=== PATIENT | female | born 2000 | race African-American/Black ===

== ENCOUNTER 2019-06-10 17:45 | Emergency (ER) | payer OTHER ==
--- NOTE | 2019-06-10 17:55 | PDOC ---
Rapid Medical Evaluation Chief Complaint: Pain, Acute Time Seen by Provider: 06/10/19 17:55 Medical Evaluation: 06/10/19 17:50 19 year old female resident at the [facility] c/o left sided facial swelling. patient is currently on augmentin for sinusitis. PE: patient alert ox3 no gum swelling + left maxillary sinus tenderness. A: left facial swelling sinusitis? P: patient to The er for further management of care Discharge Disposition - Diagnosis Left facial swelling - Referrals - Patient Instructions - Post Discharge Activity
[2019-06-10 17:56] VITALS: BP 122/72; PULSE 77; TEMP 98; BMI 43.2
--- NOTE | 2019-06-10 18:59 | PDOC ---
History of Present Illness - General Chief Complaint: Pain, Acute Stated Complaint: SWOLLEN FACE Time Seen by Provider: 06/10/19 17:55 History Source: Patient Exam Limitations: No Limitations - History of Present Illness Initial Comments: 06/10/19 20:04 Chief complaint: Facial swelling Patient is a 19-year-old female who states that she started having sinus pain and was put on Augmentin and nasal spray 5 days ago. Patient denies any fever, difficulty swallowing but now has swelling to the left side of the face that started yesterday and got worse today. GENERAL/CONSTITUTIONAL: No fever, weakness. dizziness HEAD, EYES, EARS, NOSE AND THROAT:+ Facial swelling, No change in vision. No ear pain or discharge. No sore throat. CARDIOVASCULAR: No chest pain RESPIRATORY: No shortness of breath or cough GASTROINTESTINAL: No pain, nausea, vomiting, diarrhea or constipation GENITOURINARY: No dysuria MUSCULOSKELETAL: No neck or back pain SKIN: No rash NEUROLOGIC: No headache, vertigo, loss of consciousness, or loss of sensation. GENERAL: The patient is awake, alert, and fully oriented, in no acute distress. HEAD: Mild swelling to the left cheek, no signs of erythema or urticaria, otherwise Normal with no signs of trauma. EYES: Pupils equal, round and reactive to light, sclera anicteric, conjunctiva clear. ENT: pharynx: no erythema, no exudate, uvula midline, minimal tenderness and redness at the front upper mid gumline, no obvious abscess or swelling. No sub- lingular swelling NECK: supple, no swelling CHEST: clear, nontender, rr ABD: soft, nontender BACK: no tenderness or signs of injury EXTREMITIES: Normal range of motion, no edema. NEUROLOGICAL: Normal speech, normal gait. SKIN: Warm, Dry 06/10/19 20:08 Past History - Past Medical History Allergies/Adverse Reactions: Allergies Allergy/AdvReac Type Severity Reaction Status Date / Time No Known Allergies Allergy Verified 06/10/19 17:53 COPD: No Other medical history: DENIES - Immunization History Immunization Up to Date: Yes - Psycho Social/Smoking Cessation Hx Smoking History: Never smoked Information on smoking cessation initiated: No Hx Alcohol Use: No Drug/Substance Use Hx: No *Physical Exam - Vital Signs Last Vital Signs Temp Pulse Resp BP Pulse Ox 98.0 F 77 18 122/72 97 06/10/19 17:47 06/10/19 17:47 06/10/19 17:47 06/10/19 17:47 06/10/19 17:47 ED Treatment Course - ADDITIONAL ORDERS Additional order review: Laboratory Results 06/10/19 17:59 Urine HCG, Qual Negative Medical Decision Making - Medical Decision Making 06/10/19 20:05 19-year-old female who is on 5 days Augmentin for presumed sinus infection with left facial pain and swelling, no fever, no difficulty swallowing, no respiratory issues, no neck swelling. Patient does have some minimal tenderness to the upper midfrontal tooth area on the left side. concern that patient has facial swelling although she is on Augmentin. Patient will get labs and CT facial IV contrast to evaluate for further pathology/abscess Signed out to Anthony Ortiz NP for review of labs and CT and treatment/ disposition Discharge - Discharge Information Problems reviewed: Yes Clinical Impression/Diagnosis: Left facial swelling - Follow up/Referral - Patient Discharge Instructions - Post Discharge Activity
--- NOTE | 2019-06-10 19:33 | PDOC ---
*Physical Exam - Vital Signs Last Vital Signs Temp Pulse Resp BP Pulse Ox 98.0 F 77 18 122/72 97 06/10/19 17:47 06/10/19 17:47 06/10/19 17:47 06/10/19 17:47 06/10/19 17:47 ED Treatment Course - LABORATORY CBC & Chemistry Diagram: 06/10/19 19:30 06/10/19 18:56 - ADDITIONAL ORDERS Additional order review: Laboratory Results 06/10/19 17:59 Urine HCG, Qual Negative ED Progress Note - Progress Note Progress Note: 06/10/19 19:41 Patient was seen briefly in [facility] tract by nurse practitioner Jazlyn and then transferred to [place]. Briefly this is a 19-year-old woman medical history of PCOS presents emergency department for evaluation of left facial swelling over the past 2 days. Patient is being treated with Augmentin for 5 days for sinus infection and now this has developed while on abx. Patient is pending laboratory testing and CT of the facial bones with IV contrast. Medical Decision Making - Medical Decision Making 06/10/19 21:31 Laboratory testing is unremarkable. CT scan as read by Dr. Hernandez: No gross fractures identified. Density evaluation is needed. There is mild edema and soft tissue swelling of the left cheek over the left maxillary region without gross evidence of a discrete collection/abscess. However, been hardening artifact from dental filling/hardware limiting evaluation of this region. This patient has no systemic signs/symptoms I will add Bactrim to patient's current antibiotic regimen. Discharge home I discussed the physical exam findings, ancillary test results and final diagnoses with the patient. I answered all of the patient's questions. The patient was satisfied with the care received and felt comfortable with the discharge plan and treatment plan. The patient will call their primary care physician within 24 hours to arrange follow-up and will return to the Emergency Department with any new, persistent or worsening symptoms. Portions of this note have been documented using voice recognition software. As a result, errors may occur in the manufacturing executive process. Effort has been made to correct all grammatical and manufacturing executive error, but some may have been missed. Discharge - Discharge Information Problems reviewed: Yes Clinical Impression/Diagnosis: Cellulitis Qualifiers: Site of cellulitis: face Qualified Code(s): L03.211 - Cellulitis of face Condition: Stable Disposition: HOME - Admission No - Additional Discharge Information Prescriptions: Sulfamethoxazole/Trimethoprim [Bactrim Ds -] 1 tab PO BID #14 tablet - Follow up/Referral - Patient Discharge Instructions Additional Instructions: Continue Augmentin as previously prescribed. Take Bactrim DS one tablet twice a day for the next 7 days Finish all antibiotics even if you feel better. Return to emergency department for any worsening pain, drainage, vision loss, or any other concerns. Thank you very much for choosing us to provide your emergent health care needs. - Post Discharge Activity
[2019-06-10 20:09] LABS: BASO % 0.5 % (0-2.0); EOS % 1.8 % (0-4.5); HEMATOCRIT 38.3 % (32.4-45.2); HEMOGLOBIN 11.9 GM/dL (10.7-15.3); LYMPH % 28.3 % (8-40); MCH 23.2 pg (25.7-33.7); MCHC 31.1 g/dl (32.0-36.0); MEAN CELL VOLUME 74.6 fl (80-96); MONO % 6.8 % (3.8-10.2); NEUT % 62.6 % (42.8-82.8); PLATELET COUNT 265 K/MM3 (134-434); RBC 5.14 M/mm3 (3.60-5.2); RDW 16.4 % (11.6-15.6); WHITE BLOOD COUNT 6.4 K/mm3 (4.0-10.0)
[2019-06-10 20:31] LABS: BLOOD UREA NITROGEN 6.7 mg/dL (7-18); CREATININE 0.6 mg/dL (0.55-1.3); POTASSIUM 3.8 mmol/L (3.5-5.1)
== END 2019-06-10 21:38 | disposition home or self-care (01) ==
LOC: JER 17:45
DX: L03.211 Cellulitis of face (principal); Z87.09 Personal history of other diseases of the respiratory system; Z79.2 Long term (current) use of antibiotics
CPT/HCPCS: 36415; 70487-TC; 80048; 84703; 85025; 99281-25

== ENCOUNTER 2019-08-18 18:27 | Emergency (ER) | payer OTHER ==
--- NOTE | 2019-08-18 18:32 | PDOC ---
Rapid Medical Evaluation Time Seen by Provider: 08/18/19 18:31 Medical Evaluation: Allergies Allergy/AdvReac Type Severity Reaction Status Date / Time No Known Allergies Allergy Verified 06/10/19 17:53 08/18/19 18:31 Patient c/o: cough and wheezing, nasal congestion ,used inhaler x 4 today with no improvement Patient on brief exam: vss, no accessory muscle usage, breathing via nares Patient ordered for: none Patient to proceed to the ED Discharge Disposition - Diagnosis Cough - Discharge Dispostion Disposition: HOME Condition at time of disposition: Good - Referrals - Patient Instructions Printed Discharge Instructions: Cough Additional Instructions: Rest, drink plenty of fluids and take [id number] medications for cough as needed - Post Discharge Activity
[2019-08-18 18:34] VITALS: BP 121/69; PULSE 86; TEMP 98; BMI 41.5
[2019-08-18] MEDS ORDERED: ALBUTEROL SO4 2.5/IPRATROPIUM 0.5 INH SOL 3 ML VIAL.NEB. NEB ONE ×2 (19:22→19:37)
--- NOTE | 2019-08-18 19:27 | PDOC ---
History of Present Illness - General Chief Complaint: Asthma Stated Complaint: Asthma Time Seen by Provider: 08/18/19 18:31 History Source: Patient - History of Present Illness Timing/Duration: reports: other Associated Symptoms: reports: cough Past History - Past Medical History Allergies/Adverse Reactions: Allergies Allergy/AdvReac Type Severity Reaction Status Date / Time No Known Allergies Allergy Verified 08/18/19 18:34 Home Medications: Ambulatory Orders Sulfamethoxazole/Trimethoprim [Bactrim Ds -] 1 tab PO BID #14 tablet 06/10/19 COPD: No - Immunization History Immunization Up to Date: Yes - Psycho Social/Smoking Cessation Hx Smoking History: Never smoked Information on smoking cessation initiated: No Hx Alcohol Use: No Drug/Substance Use Hx: No Review of Systems - Review of Systems Constitutional: No: Chills, Fever Respiratory: Yes: Cough. No: Shortness of Breath, Wheezing Cardiac (ROS): No: Chest Pain *Physical Exam - Vital Signs Last Vital Signs Temp Pulse Resp BP Pulse Ox 98 F 86 19 121/69 100 08/18/19 18:32 08/18/19 18:32 08/18/19 18:32 08/18/19 18:32 08/18/19 18:32 - Physical Exam General Appearance: Yes: Appropriately Dressed. No: Apparent Distress HEENT: positive: Normal ENT Inspection, Normal Voice, TMs Normal, Pharynx Normal. negative: Scleral Icterus (R), Scleral Icterus (L) Neck: positive: Supple. negative: Lymphadenopathy (R), Lymphadenopathy (L) Respiratory/Chest: positive: Lungs Clear, Normal Breath Sounds. negative: Respiratory Distress, Wheezing Cardiovascular: positive: Regular Rate, S1, S2 Integumentary: positive: Dry, Warm Neurologic: positive: Fully Oriented, Alert, Normal Mood/Affect Medical Decision Making - Medical Decision Making 08/18/19 19:31 19-year-old female, history of asthma. no admissions or intubations, here with mostly dry cough with pleuritic chest pain x several days. Denies shortness of breath, wheezing, chest tightness, f/c. Using her pump with no relief in cough per patient see exam Cough M/l viral No e/o acute asthma flare 1 duoneb given here -DC to continue home meds Discharge - Discharge Information Problems reviewed: Yes Clinical Impression/Diagnosis: Cough Condition: Good Disposition: HOME - Follow up/Referral - Patient Discharge Instructions Patient Printed Discharge Instructions: Cough Additional Instructions: Rest, drink plenty of fluids and take [id number] medications for cough as needed - Post Discharge Activity
== END 2019-08-18 19:54 | disposition home or self-care (01) ==
LOC: JERFT 18:27 → JER 18:27 → JERFT 19:54
PROC: 3E0F7GC Introduction of Other Therapeutic Substance into Respiratory Tract, Via Natural or Artificial Opening (ICD-10-PCS; principal; 2019-08-18)
DX: R05 Cough (principal); J45.909 Unspecified asthma, uncomplicated
CPT/HCPCS: 99281-25

== ENCOUNTER 2019-08-19 19:22 | Emergency (ER) | payer OTHER ==
[2019-08-19 19:31] VITALS: BP 131/80; PULSE 78; TEMP 98.5; BMI 41.5
[2019-08-19] MEDS ORDERED: ALBUTEROL SO4 2.5/IPRATROPIUM 0.5 INH SOL 3 ML VIAL.NEB. NEB ONE (20:10)
--- NOTE | 2019-08-19 20:14 | PDOC ---
History of Present Illness - General Chief Complaint: Asthma Stated Complaint: HYPERTENSION Time Seen by Provider: 08/19/19 20:07 History Source: Patient Exam Limitations: No Limitations - History of Present Illness Initial Comments: 08/19/19 22:45 19-year-old female with history of diabetes, asthma denies history of intubation , lives in a senior living presents complaining of dry cough x 2 days with chest discomfort when she coughs. Seen at this ED yesterday for asthma exacerbation, felt better after neb treatments and was discharged. Denies shortness of breath , nausea, vomiting, fever, chills, abdominal pain, or any other complaint. ROS: GENERAL/CONSTITUTIONAL: No fever, chills, weakness HEAD, EYES, EARS, NOSE AND THROAT: No changes in vision, No ear pain or discharge, No sore throat CARDIOVASCULAR: No chest pain RESPIRATORY: Cough, no shortness of breath GASTROINTESTINAL: No pain, nausea, vomiting, diarrhea GENITOURINARY: No dysuria MUSCULOSKELETAL: No neck or back pain SKIN: No rash NEUROLOGIC: No headache, vertigo, loss of consciousness, or loss of sensation PE: GENERAL: well-appearing, NAD, speaking full sentences HEAD: NCAT EYES: Pupils equal, round and reactive to light, sclera anicteric, conjunctiva clear ENT: pharynx: no erythema, no exudate, uvula midline NECK: supple CHEST: nontender RESP: Minimal wheezing throughout lung miramontes CARDIO: rrr, no m/g/r ABD: +BS, soft, nontender, non distended BACK: no midline spinal ttp, no CVAT EXTREMITIES: Normal range of motion, no edema NEUROLOGICAL: Normal speech, normal gait SKIN: Warm, Dry Past History - Past Medical History Allergies/Adverse Reactions: Allergies Allergy/AdvReac Type Severity Reaction Status Date / Time No Known Allergies Allergy Verified 08/18/19 18:34 Home Medications: Ambulatory Orders Sulfamethoxazole/Trimethoprim [Bactrim Ds -] 1 tab PO BID #14 tablet 06/10/19 Asthma: Yes COPD: No - Immunization History Immunization Up to Date: Yes - Psycho Social/Smoking Cessation Hx Smoking History: Never smoked Hx Alcohol Use: No Drug/Substance Use Hx: No *Physical Exam - Vital Signs Last Vital Signs Temp Pulse Resp BP Pulse Ox 98.5 F 78 19 131/80 100 08/19/19 19:27 08/19/19 19:27 08/19/19 19:27 08/19/19 19:27 08/19/19 19:27 Medical Decision Making - Medical Decision Making 08/19/19 22:50 19-year-old female lives in a senior living, with history of hypertension and diabetes presents complaining of cough, chest discomfort when coughing x2 days. test negative Chest x-ray reviewed by me -no acute pathology Feels better after nebs Will discharge Return precautions advised Discharge - Discharge Information Problems reviewed: Yes Clinical Impression/Diagnosis: Cough Condition: Stable Disposition: HOME - Admission No - Follow up/Referral - Patient Discharge Instructions Additional Instructions: Use albuterol MDI 1 to 2 puffs every 4-6 hours as needed Return to the ED if shortness of breath, fever, chills, nausea, vomiting or any worsening symptoms - Post Discharge Activity
== END 2019-08-19 22:55 | disposition home or self-care (01) ==
LOC: JERFT 19:22
PROC: 3E0F7GC Introduction of Other Therapeutic Substance into Respiratory Tract, Via Natural or Artificial Opening (ICD-10-PCS; principal; 2019-08-19)
DX: R05 Cough (principal); I10 Essential (primary) hypertension; E11.9 Type 2 diabetes mellitus without complications
CPT/HCPCS: 71046-TC-FY; 84703; 99281-25